=== PATIENT | male | born 1945 | race Caucasian/White ===

== ENCOUNTER 2018-03-27 09:37 | Day surgery (SDC) | payer BC ==
[2018-03-27] MEDS ORDERED: PROPOFOL 10 MG/ML VIAL IV ONE (09:38)
[2018-03-27] MEDS ORDERED: LIDOCAINE 2% MDV (20MG/ML) 20ML VIAL IV ONE (09:38)
--- NOTE | 2018-03-28 12:11 | Operative Note ---
DATE OF SURGERY: 03/27/2018 OPERATION: COLONOSCOPY to the cecum with multiple biopsies, cold snare polypectomy x2, and electrocautery snare polypectomy x2. INDICATION: Prior history of colon polyps. The patient's last examination was more than 10 years ago in [place]. He returns at this time for surveillance purposes. He was told he had benign polyp in the past. ANESTHESIA: Intravenous sedation was administered by the department of anesthesiology and included Diprivan titrated to effect. PROCEDURE: Following informed consent from this alert individual including a discussion of the risks and benefits of the procedure and an opportunity for the patient to ask questions, the patient was in the left lateral decubitus position. A digital rectal examination was performed. No abnormalities were noted. Following this, the Olympus XGF184 video colonoscope was inserted into the rectum without resistance. The rectal mucosa had a normal appearance. However, there was a semi-sessile polyp measuring 1 cm in size which was initially traversed. The sigmoid colon was cannulated and found to have diverticulosis and further advancement through the proximal sigmoid colon and descending colon revealed colitis with erythematous edematous mucosa and loss of the normal vasculature associated with the diverticulosis. The colonoscope was then farther advanced up through the bowel to the level of the cecum. The proximal descending colon, the transverse colon, ascending colon were endoscopically unremarkable with a normal vasculature, normal folds and distensibility. Upon reaching the cecum, there were multiple 3 mm polyps at the base of the cecum resembling pseudopolyps with possible scarring noted in the cecum as well. Two of the larger 3-4 mm polyps were removed with cold snare polypectomy and the smaller polyps removed with biopsy forceps. There were probably 8-10 polyps noted total at the base of the cecum. The terminal ileum was cannulated and found to be unremarkable. Retroflexion within the cecum was also found to be unremarkable. The colon preparation overall was good. From the base of the cecum, the colonoscope was then withdrawn. Biopsies were taken from the area of colitis involving the descending colon and proximal sigmoid colon. Again, this may be colitis associated with diverticulosis although this was not clear. For this reason, multiple biopsies were obtained. Again diverticulosis was noted. Also, at the proximal sigmoid colon, there was a polyp measuring 6-7 mm in size which was removed with electrocautery snare polypectomy after cold snare failed to completely remove the polyp. The larger 1 cm mid rectal polyp was then removed with electrocautery snare polypectomy with a white eschar noted , no bleeding. There was no bleeding at the sigmoid colon polyp site as well. Retroflexion in the rectum revealed internal hemorrhoids. The endoscope was straightened and removed. The patient tolerated the procedure well and was returned to the recovery area in stable condition. IMPRESSION: 1. Normal terminal ileum. 2. Multiple 3-4 mm cecal polyps (8-10 polyps) removed with biopsy forceps and cold snare polypectomy. These did resemble pseudopolyps endoscopically and I question whether he had previous episodes of colitis. 3. Possible colitis-associated diverticulosis involving the descending colon and proximal sigmoid colon. Biopsies were taken. 4. Proximal sigmoid polyp measuring 6-7 mm in size removed with electrocautery snare polypectomy and recovered. 5. A 1 cm mid rectal polyp removed with electrocautery and snare polypectomy. This was recovered as well. 6. Sigmoid diverticulosis. 7. Internal hemorrhoids. RECOMMENDATIONS: Further recommendations will be forthcoming pending results of biopsy obtained today. I will discuss the possible history of colitis with the patient as well. You might have him follow up with me in the GI clinic in the next few months. Further recommendations will be forthcoming. As always, thank you for allowing me to participate in the care of your patient. Addendum After the patient awoke following the procedure, I discussed his history with him. He in fact admitted that he did have a long-standing history of ulcerative colitis and has been using sulfasalazine for this problem, which has kept him in clinical remission over the many years. His last colonoscopy was probably 12 or more years ago. He initially originally had a severe case of colitis requiring steroids but none since. I was under the impression that he was taking sulfasalazine for arthritis but in fact it was for the ulcerative colitis noted above. I was also under the impression that the exam requested was for history of polyps. Further recommendations will be forthcoming pending results of pathology obtained today. I will have the patient follow up with me in the GI clinic in the next 2 months or so to discuss his progress, medications , and repeat examination in 1 year's time pending biopsies. CC: Jan Aldridge, DO [facility]
== END 2018-03-27 12:40 | disposition home or self-care (01) ==
LOC: HOP 09:37
PROVIDERS: ATTEND Internal Medicine Gastroenterology
DX: Z12.11 Encounter for screening for malignant neoplasm of colon (principal); Z86.010 Personal history of colon polyps; D12.0 Benign neoplasm of cecum; D12.4 Benign neoplasm of descending colon; D12.5 Benign neoplasm of sigmoid colon; K57.30 Diverticulosis of large intestine without perforation or abscess without bleeding; K51.90 Ulcerative colitis, unspecified, without complications; I10 Essential (primary) hypertension; E78.00 Pure hypercholesterolemia, unspecified

== ENCOUNTER 2018-09-21 09:17 | Day surgery (SDC) | payer BC ==
[2018-09-21] MEDS ORDERED: NEOMYCIN/POLY./DEXAM OPTH OINT OPTH ONE (09:18)
[2018-09-21] MEDS ORDERED: TETRACAINE HCL 0.5% 15 ML OPTH BTL OPTH ONE (09:18)
[2018-09-21] MEDS ORDERED: EPINEPHRINE 1 MG/ML AMPUL SQ ONE (09:18)
[2018-09-21] MEDS ORDERED: LIDOCAINE 2% MDV (20MG/ML) 20ML VIAL IV ONE ×2 (09:18)
[2018-09-21] MEDS ORDERED: PROPOFOL 10 MG/ML VIAL IV ONE (09:18)
[2018-09-21] MEDS ORDERED: CIPROFLOXACIN HCL 0.0015 GM, PHENYLEPHRINE HCL 0.05 GM, KETOROLAC TROMETHAMINE 0.000625 GM MC ONE ×5 (11:30)
--- NOTE | 2018-09-23 07:22 | Operative Note ---
DATE OF PROCEDURE: 09/21/18 PREOPERATIVE DIAGNOSIS: NUCLEAR SCLEROTIC AND POSTERIOR SUBCAPSULAR CATARACT, LEFT EYE. POSTOPERATIVE DIAGNOSIS: NUCLEAR SCLEROTIC AND POSTERIOR SUBCAPSULAR CATARACT, LEFT EYE. PROCEDURE: PHACOEMULSIFICATION OF CATARACTOUS LENS WITH IMPLANTATION OF INTRA- OCULAR LENS. SURGEON: CASTRO MORENO M.D. LENS IMPLANT USED: HI MODEL PCB00 +20.0 DIOPTERS. COMPLICATIONS: NONE. PROCEDURE: The patient was given reference brandi at the 0 and 180-degree position prior to being blocked in the usual fashion with the retrobulbar block in the left eye. The patient was then prepped and draped in the usual fashion and a lid speculum placed in the left eye. At this point, the corneal marker was used to create markings on the cornea at 168 degrees after which, a scleral tunnel wound was placed at the temporal limbus of 2.4 mm cord length. A paracentesis was placed 2 hours to the left and right of this and the chamber deepened with Viscoelastic. The keratome was used to enter through the scleral tunnel wound after which the continuous circular capsulorrhexis was accomplished without difficulty. Hydrodissection of the lens was performed and the nucleus of the lens was removed in a divide and conquer fashion. The residual cortical material was irrigated and aspirated from the eye and the bag and chamber were then reinflated with Viscoelastic. The intraocular lens was placed into the capsular bag and oriented to a position 10 degrees shorter the intended final access. The residual Viscoelastic was removed from the eye and the eye was then reinflated and the intraocular lens dialed into position at 168 degrees. The wound was noted to be water-tight to direct encounter pressure. The lid speculum was removed and the eye was patched and shielded to be re-examined later in the afternoon. JOB NUMBER: [id number] MTDD
== END 2018-09-21 12:07 | disposition home or self-care (01) ==
LOC: SUR 09:17
PROVIDERS: ATTEND Ophthalmology
DX: H25.12 Age-related nuclear cataract, left eye (principal); I10 Essential (primary) hypertension; E78.00 Pure hypercholesterolemia, unspecified; K52.9 Noninfective gastroenteritis and colitis, unspecified
CPT/HCPCS: J0171

== ENCOUNTER 2018-09-28 09:41 | Day surgery (SDC) | payer BC ==
[2018-09-28] MEDS ORDERED: TETRACAINE HCL 0.5% 15 ML OPTH BTL OPTH ONE (09:42)
[2018-09-28] MEDS ORDERED: NEOMYCIN/POLY./DEXAM OPTH OINT OPTH ONE (09:42)
[2018-09-28] MEDS ORDERED: LIDOCAINE 2% MDV (20MG/ML) 20ML VIAL IV ONE ×2 (09:42)
[2018-09-28] MEDS ORDERED: EPINEPHRINE 1 MG/ML AMPUL SQ ONE (09:42)
[2018-09-28] MEDS ORDERED: PROPOFOL 10 MG/ML VIAL IV ONE (09:42)
[2018-09-28] MEDS ORDERED: CIPROFLOXACIN HCL 0.0015 GM, PHENYLEPHRINE HCL 0.05 GM, KETOROLAC TROMETHAMINE 0.000625 GM MC ONE ×5 (15:15)
--- NOTE | 2018-09-28 21:16 | Operative Note ---
DATE OF PROCEDURE: 09/28/18. PREOPERATIVE DIAGNOSIS: Nuclear sclerotic and posterior subcapsular cataract, right eye. POSTOPERATIVE DIAGNOSIS: Nuclear sclerotic and posterior subcapsular cataract, right eye. OPERATION: Phacoemulsification of cataractous lens with implantation of intraocular lens. LENS IMPLANT USED: Byrd Model PCB00 + 10.5 diopters. COMPLICATIONS: None. PROCEDURE IN DETAIL: Following a retrobulbar and facial block, the patient was prepped and draped in the usual fashion for eye surgery. A lid speculum was placed in the right eye after which a 2.4 mm tunnel wound was placed at the temporal limbus and dissected into clear cornea. A paracentesis was placed at 2 o'clock hours to the left and right of the initial incision and the chamber deepened with Viscoelastic. The keratome was then used to enter the anterior chamber after which the continuous circular capsulorrhexis was accomplished without difficulty using a bent needle and a Utrata forceps. Hydrodissection and hydrodelineation of the lens was performed after which the nucleus of the lens was removed using the Phaco handpiece in the [id number] technique. The residual cortical material was irrigated and aspirated from the eye after which the bag and chamber were re-examined. The bag was re-inflated with Viscoelastic and the intraocular lens injected into the capsular bag where it centered well. The Viscoelastic was then copiously irrigated and aspirated from the eye after which the temporal tunnel wound and paracentesis were hydrated and the wounds were examined. They were noted to be watertight. The lid speculum was removed from the eye and the eye patched and shielded. The patient was transferred to the recovery room in satisfactory condition and given an appointment to be reexamined in the clinic later today or as directed by Dr. Londono. JOB NUMBER: [id number] [facility]
== END 2018-09-28 11:55 | disposition home or self-care (01) ==
LOC: SUR 09:41
PROVIDERS: ATTEND Ophthalmology
DX: H25.11 Age-related nuclear cataract, right eye (principal); I10 Essential (primary) hypertension; E78.00 Pure hypercholesterolemia, unspecified; K52.9 Noninfective gastroenteritis and colitis, unspecified; G47.33 Obstructive sleep apnea (adult) (pediatric)
CPT/HCPCS: J0171